=== PATIENT | female | born 1960 | race Caucasian/White ===

== ENCOUNTER 2017-01-29 15:25 | Inpatient (IN) | payer OTHER ==
[~2017-01-29] VITALS: Ht 154.9 cm; Wt 65.8 kg
[2017-01-29] MEDS ORDERED: VANCOMYCIN 1 G PREMIX 200 ML IV SCH (15:45)
[2017-01-29] MEDS ORDERED: DEXAMETHASONE 10MG/ML 1ML VIAL IV ONE (15:45)
[2017-01-29] MEDS ORDERED: CEFTRIAXONE 2 G PREMIX 50 ML IV ONE (15:45)
[2017-01-29] MEDS ORDERED: SODIUM CHLORIDE 0.9% 1000ML BAG (SEPSIS BOLUS) IV ONE (15:45)
[2017-01-29 16:45] LABS: CLARITY URINE CLEAR (CLEAR); COLOR URINE YELLOW (YELLOW); GLUCOSE URINE NEGATIVE (NEGATIVE); KETONES URINE NEGATIVE (NEGATIVE); LEUKOCYTE ESTERASE URINE 2+ (NEGATIVE); NITRITE URINE NEGATIVE (NEGATIVE); OCCULT BLOOD URINE NEGATIVE (NEGATIVE); PH URINE >=9.0 (4.5-8.0); PROTEIN URINE NEGATIVE (NEGATIVE); SPECIFIC GRAVITY URINE 1.012 (1.005-1.030); UROBILINOGEN URINE 0.2 E.U./dL (0.2-1.0)
[2017-01-29 17:08] LABS: BASOPHILS % 0.1 % (0.0-2.0); EOSINOPHILS % 0.1 % (0.0-5.0); HEMATOCRIT. 36.5 % (36.0-48.0); HEMOGLOBIN. 12.7 g/dL (12.0-16.0); LYMPHOCYTES % 7.4 % (20.0-50.0); MEAN CORPUSCULAR HEMOGLOBIN 32.1 pg (28.0-32.0); MEAN CORPUSCULAR VOLUME 92.2 fL (81.0-99.0); MEAN PLATELET VOLUME 7.4 fl (7.4-10.4); MONOCYTES % 13.5 % (2.0-8.0); NEUTROPHILS % 78.9 % (40.0-76.0); PLATELET 235 x1000/uL (130-400); RED BLOOD CELL COUNT 3.95 mill/uL (4.2-5.4); RED CELL DISTRIBUTION WIDTH 13.4 % (11.6-14.6)
[2017-01-29 17:14] LABS: CHLORIDE 99 mEq/L (98-107)
[2017-01-29 17:16] LABS: PARTIAL THROMBOPLASTIN TIME 31.2 sec (24.0-34.0); PROTHROMBIN TIME 10.7 sec
[2017-01-29 17:19] LABS: CARBON DIOXIDE 24 mEq/L (21-32)
[2017-01-29 17:24] LABS: TROPONIN I < 0.02 ng/mL (0.00-0.04)
[2017-01-29] MEDS ORDERED: ACETAMINOPHEN 325MG TABLET PO ONE (18:30)
[2017-01-29] MEDS ORDERED: LIDOCAINE HCL 1% 20ML VIAL (Pyxis) INJ INFIL ONE (20:15)
[2017-01-29 21:56] LABS: GLUCOSE CSF 67 mg/dL (41-75)
[2017-01-29] MEDS ORDERED: IPRATROPIUM/ALBUTEROL 0.5-3(2.5)MG/3ML NEB INH PRN (22:30)
[2017-01-29] MEDS ORDERED: DOCUSATE SODIUM 100MG CAPSULE PO PRN (22:30)
[2017-01-29] MEDS ORDERED: ONDANSETRON HCL 4MG/2ML VIAL IV PRN (22:30)
[2017-01-29] MEDS ORDERED: ACETAMINOPHEN 325MG TABLET PO PRN (22:30)
[2017-01-29] MEDS ORDERED: PIPERACILLIN/TAZ 3.375G PREMIX 50 ML IV SCH (22:30)
[2017-01-29] MEDS ORDERED: CLONIDINE 0.1MG TABLET PO PRN (22:30)
[2017-01-29] MEDS ORDERED: MAGNESIUM/ALUMINUM HYDROXIDE/SIMETHICONE 30ML UDC PO PRN (22:30)
[2017-01-29 23:07] LABS: CHLORIDE 102 mEq/L (98-107)
[2017-01-29 23:11] LABS: CARBON DIOXIDE 24 mEq/L (21-32)
[2017-01-30 04:50] VITALS: BP 102/69
[2017-01-30 06:45] LABS: HEMOGLOBIN. 11.5 g/dL (12.0-16.0); MEAN CORPUSCULAR HEMOGLOBIN 32.3 pg (28.0-32.0); MEAN CORPUSCULAR VOLUME 92.7 fL (81.0-99.0); MEAN PLATELET VOLUME 7.7 fl (7.4-10.4); PLATELET 216 x1000/uL (130-400); RED BLOOD CELL COUNT 3.56 mill/uL (4.2-5.4); RED CELL DISTRIBUTION WIDTH 13.6 % (11.6-14.6)
[2017-01-30] MEDS ORDERED: VANCOMYCIN 1500MG in DEXTROSE 5% WATER 250ML IV SCH (07:00)
[2017-01-30 07:25] LABS: CREATINE KINASE 179 IU/L (26-192); CREATINE KINASE MB FRACTION 2.1 ng/mL (0.5-3.6); HDL CHOLESTEROL 67 mg/dL (40-59); LDL CHOLESTEROL 36 mg/dL (5-100); TROPONIN I < 0.02 ng/mL (0.00-0.04)
[2017-01-30 07:40] VITALS: BP 98/64
[2017-01-30 08:00] VITALS: BP 118/76
[2017-01-30 09:36] LABS: PLATELET ESTIMATE NORMAL
[2017-01-30] MEDS ORDERED: CETI10TA6 PO (10:15)
[2017-01-30] MEDS ORDERED: SIMV40TA5 PO (10:15)
[2017-01-30] MEDS ORDERED: DIVA500T51 PO (10:15)
[2017-01-30] MEDS ORDERED: FERR-63 PO (10:15)
[2017-01-30] MEDS ORDERED: LEVO50TA8 PO (10:15)
[2017-01-30] MEDS ORDERED: TOPI-60 PO (10:15)
[2017-01-30] MEDS ORDERED: OMEP20CA10 PO (10:15)
[2017-01-30] MEDS ORDERED: BENA1TAB18 PO (10:15)
[2017-01-30] MEDS ORDERED: TOLT4CAP PO (10:15)
[2017-01-30] MEDS ORDERED: LEVE500T19 PO (10:15)
[2017-01-30] MEDS ORDERED: NORT10CA PO (10:15)
[2017-01-30] MEDS ORDERED: GABA-529 PO (10:15)
[2017-01-30] MEDS ORDERED: NORT25CA PO (10:15)
[2017-01-30 10:50] LABS: *AMPHETAMINES SCREEN URINE NEGATIVE (NEGATIVE); *BARBITURATES SCREEN URINE NEGATIVE (NEGATIVE); *BENZODIAZEPINES SCREEN URINE NEGATIVE (NEGATIVE); *COCAINE SCREEN URINE NEGATIVE (NEGATIVE); CANNABINOID URINE SCREEN NEGATIVE (NEGATIVE); METHADONE URINE SCREEN NEGATIVE (NEGATIVE); OPIATES URINE SCREEN NEGATIVE (NEGATIVE); PHENCYCLIDINE URINE SCREEN NEGATIVE (NEGATIVE)
[2017-01-30] MEDS: ENOXAPARIN 40MG/0.4ML SYR SUBCUT SCH (11:04)
[2017-01-30] MEDS: LEVETIRACETAM 500MG TABLET PO SCH ×2 (11:04→20:47)
[2017-01-30] MEDS: SODIUM CHLORIDE 0.9% 1,000 ML IV SCH ×2 (11:06→21:40)
[2017-01-30] MEDS: PIPERACILLIN/TAZ 3.375G PREMIX 50 ML IV SCH ×2 (11:18→17:21)
[2017-01-30] MEDS: OXYBUTYNIN CHLORIDE 5MG TABLET PO SCH ×2 (12:18→17:21)
[2017-01-30] MEDS: HYDROCODONE/ACETAMINOPHEN 5/325MG TABLET PO PRN ×2 (12:22→22:17)
[2017-01-30 12:25] VITALS: BP 102/52
[2017-01-30 13:11] LABS: CHLORIDE 104 mEq/L (98-107)
[2017-01-30 13:22] LABS: CARBON DIOXIDE 22 mEq/L (21-32)
[2017-01-30] MEDS ORDERED: POTASSIUM CHLORIDE 20MEQ TABLET SR PO NR (14:30)
[2017-01-30] MEDS: DIVALPROEX SODIUM 500MG DR TABLET PO SCH ×2 (14:39→20:45)
[2017-01-30 15:53] LABS: CREATINE KINASE 202 IU/L (26-192); CREATINE KINASE MB FRACTION 3.4 ng/mL (0.5-3.6); TROPONIN I < 0.02 ng/mL (0.00-0.04)
[2017-01-30 16:16] VITALS: BP 114/72
[2017-01-30] MEDS: FERROUS SULFATE 325MG TABLET PO SCH (17:21)
[2017-01-30 19:13] VITALS: BP_SYST 105; BP_SYST 120; BP_DIAS 68; BP_DIAS 75
[2017-01-30] MEDS: VANCOMYCIN 1 G PREMIX 200 ML IV SCH (20:43)
[2017-01-30] MEDS: TOPIRAMATE 25MG TABLET PO SCH (20:53)
[2017-01-30] MEDS ORDERED: GABAPENTIN 100MG CAPSULE PO SCH (21:00)
[2017-01-30] MEDS ORDERED: NORTRIPTYLINE HCL 25MG CAPSULE PO SCH (21:00)
[2017-01-30] MEDS ORDERED: CETIRIZINE 10MG TABLET PO SCH (21:00)
[2017-01-30] MEDS ORDERED: ATORVASTATIN CALCIUM 40MG TABLET PO SCH (21:00)
[2017-01-31 00:08] VITALS: BP_SYST 123; BP_SYST 125; BP_DIAS 69; BP_DIAS 73
[2017-01-31] MEDS: PIPERACILLIN/TAZ 3.375G PREMIX 50 ML IV SCH ×2 (03:00→13:29)
[2017-01-31 05:19] VITALS: BP 105/63
[2017-01-31 06:55] LABS: BASOPHILS % 0.3 % (0.0-2.0); EOSINOPHILS % 0.1 % (0.0-5.0); HEMATOCRIT. 32.2 % (36.0-48.0); HEMOGLOBIN. 11.1 g/dL (12.0-16.0); LYMPHOCYTES % 9.5 % (20.0-50.0); MEAN CORPUSCULAR HEMOGLOBIN 32.3 pg (28.0-32.0); MEAN CORPUSCULAR VOLUME 93.7 fL (81.0-99.0); MEAN PLATELET VOLUME 8.6 fl (7.4-10.4); MONOCYTES % 8.7 % (2.0-8.0); NEUTROPHILS % 81.4 % (40.0-76.0); PLATELET 174 x1000/uL (130-400); RED BLOOD CELL COUNT 3.43 mill/uL (4.2-5.4); RED CELL DISTRIBUTION WIDTH 13.2 % (11.6-14.6)
[2017-01-31] MEDS ORDERED: OMEPRAZOLE 20MG CAPSULE EXTENDED RELEASE PO SCH (07:20)
[2017-01-31] MEDS ORDERED: LEVOTHYROXINE SODIUM 50MCG TABLET PO SCH (07:20)
[2017-01-31 07:54] LABS: CARBON DIOXIDE 19 mEq/L (21-32); CHLORIDE 105 mEq/L (98-107)
[2017-01-31 08:05] VITALS: BP 108/63
[2017-01-31] MEDS: LEVETIRACETAM 500MG TABLET PO SCH (08:48)
[2017-01-31] MEDS: FERROUS SULFATE 325MG TABLET PO SCH (08:48)
[2017-01-31] MEDS: DIVALPROEX SODIUM 500MG DR TABLET PO SCH (08:48)
[2017-01-31] MEDS: ENOXAPARIN 40MG/0.4ML SYR SUBCUT SCH (08:48)
[2017-01-31] MEDS: HYDROCODONE/ACETAMINOPHEN 5/325MG TABLET PO PRN (08:48)
[2017-01-31] MEDS: OXYBUTYNIN CHLORIDE 5MG TABLET PO SCH ×2 (08:48→13:32)
[2017-01-31] MEDS: TOPIRAMATE 25MG TABLET PO SCH (08:48)
[2017-01-31] MEDS ORDERED: HYDROCHLOROTHIAZIDE 12.5MG CAPSULE PO SCH (09:00)
[2017-01-31] MEDS ORDERED: BENAZEPRIL 20MG TABLET PO SCH (09:00)
[2017-01-31] MEDS: VANCOMYCIN 1 G PREMIX 200 ML IV SCH (11:05)
[2017-01-31 12:00] VITALS: BP 104/64
[2017-01-31] MEDS: SODIUM CHLORIDE 0.9% 1,000 ML IV SCH (14:11)
[2017-01-31 14:40] VITALS: BP 108/63
[2017-01-31 15:35] VITALS: BP 101/69
[2017-01-31] MEDS ORDERED: CEFAZOLIN 2,000 MG in DEXT 5% WATER 100 ML IV SCH (16:30)
== END 2017-01-31 15:52 | disposition home or self-care (01) | DRG 720 ==
LOC: ER 15:29 → 6WST 20:49 → EDBEDREQTM 20:51 → EDBEDREQ 20:51 → ENRESERV 01-30 02:43
PROVIDERS: ADMIT Internal Medicine; ATTEND Internal Medicine
PROC: 009U3ZX Drainage of Spinal Canal, Percutaneous Approach, Diagnostic (ICD-10-PCS; principal; 2017-01-29)
PROC: 02HV33Z Insertion of Infusion Device into Superior Vena Cava, Percutaneous Approach (ICD-10-PCS; 2017-01-31)
PROC: B5181ZA Fluoroscopy of Superior Vena Cava using Low Osmolar Contrast, Guidance (ICD-10-PCS; 2017-01-31)
PROC: B548ZZA Ultrasonography of Superior Vena Cava, Guidance (ICD-10-PCS; 2017-01-31)
DX: A41.9 Sepsis, unspecified organism (principal); G93.40 Encephalopathy, unspecified; E87.8 Other disorders of electrolyte and fluid balance, not elsewhere classified; I11.0 Hypertensive heart disease with heart failure; I50.40 Unspecified combined systolic (congestive) and diastolic (congestive) heart failure; S09.90XA Unspecified injury of head, initial encounter; N39.0 Urinary tract infection, site not specified; B96.20 Unspecified Escherichia coli [E. coli] as the cause of diseases classified elsewhere; E87.6 Hypokalemia; G40.909 Epilepsy, unspecified, not intractable, without status epilepticus; Z79.899 Other long term (current) drug therapy; Z88.8 Allergy status to other drugs, medicaments and biological substances; I69.354 Hemiplegia and hemiparesis following cerebral infarction affecting left non-dominant side; Z86.61 Personal history of infections of the central nervous system; W01.10XA Fall on same level from slipping, tripping and stumbling with subsequent striking against unspecified object, initial encounter; Y93.89 Activity, other specified; Y92.89 Other specified places as the place of occurrence of the external cause; Y99.8 Other external cause status
CPT/HCPCS: 36415; 36569; 62270; 70450; 70544; 70553; 71010; 76937; 77001; 80048; 80053; 80061; 80305; 81001; 82550; 82553; 82945; 83605; 83690; 83735; 83880; 84157; 84443; 84484; 85025; 85610; 85730; 87040; 87070; 87077; 87086; 87186; 87205; 87804; 89050; 93005; 93306; 93970; 96365; 96366; 96367; 96375; 97162; 97166; 97530; 97535; 99291; C1725; C1893; J0690; J0696; J1100; J1650; J2543; J3370; J3490; J7030; J7050; J7060

== ENCOUNTER 2019-05-29 18:45 | Emergency (ER) | payer OTHER ==
[~2019-05-29] VITALS: Ht 165.1 cm; Wt 80.0 kg
[~2019-05-29 18:45] MED LIST: BENA1TAB18 PO; CETI10TA6 PO; DIVA500T51 PO; FERR-63 PO; GABA-529 PO; LEVE500T19 PO; LEVO50TA8 PO; NORT10CA PO; NORT25CA PO; OMEP20CA5 PO; SIMV40TA5 PO; TOLT4CAP PO; TOPI25TA48 PO
[2019-05-29 21:45] LABS: CLARITY URINE TURBID (CLEAR); COLOR URINE YELLOW (YELLOW); KETONES URINE NEGATIVE (NEGATIVE); LEUKOCYTE ESTERASE URINE TRACE (NEGATIVE); NITRITE URINE NEGATIVE (NEGATIVE); OCCULT BLOOD URINE NEGATIVE (NEGATIVE); PH URINE >=9.0 (4.5-8.0); PROTEIN URINE NEGATIVE (NEGATIVE); SPECIFIC GRAVITY URINE 1.015 (1.005-1.030); UROBILINOGEN URINE 0.2 E.U./dL (0.2-1.0)
[2019-05-29 22:22] VITALS: BP 107/64
== END 2019-05-29 22:25 | disposition home or self-care (01) ==
LOC: ER 18:45
DX: N39.0 Urinary tract infection, site not specified (principal); N32.81 Overactive bladder; R56.9 Unspecified convulsions; Z88.8 Allergy status to other drugs, medicaments and biological substances; Z86.73 Personal history of transient ischemic attack (TIA), and cerebral infarction without residual deficits
CPT/HCPCS: 81003; 99283